=== PATIENT | male | born 1955 | race Hispanic/Latino ===

== ENCOUNTER 2017-06-16 16:03 | Emergency (ER) | payer BC ==
[2017-06-16 16:13] VITALS: RESP 16; TEMP 98.4; O2SAT 95
--- NOTE | 2017-06-16 16:22 | ED PDOC ---
Arrival/HPI - General Chief Complaint: Abdominal Pain Time Seen by Provider: 06/16/17 16:13 Historian: Patient - History of Present Illness Narrative History of Present Illness (Text): 06/16/17 16:22 61yo male with PMhx of Hypertension , lipdemia, present with complaint of mild sharp constant right groin/flank pain for hours now. +Nausea. Report history of Kidney stone 5years ago. Denies vomiting, diarrhea, fever, urinary symptoms, hematuria, chest pain, trauma, ripping/tearing upper back pain. Past Medical History - Provider Review Nursing Documentation Reviewed: Yes - Cardiac Hx Hypertension: Yes - Pulmonary Hx Respiratory Disorders: No - Neurological Hx Neurological Disorder: No - HEENT Hx HEENT Disorder: No - Renal Hx Renal Disorder: No - Endocrine/Metabolic Hx Endocrine Disorders: No - Hematological/Oncological Hx Blood Disorders: No - Integumentary Hx Dermatological Disorder: No - Musculoskeletal/Rheumatological Hx Musculoskeletal Disorders: No - Gastrointestinal Hx Gastrointestinal Disorders: No - Genitourinary/Gynecological Hx Genitourinary Disorders: No - Psychiatric Hx Psychophysiologic Disorder: No Hx Substance Use: No - Surgical History Other/Comment: VASECTOMY - Anesthesia Hx Anesthesia: Yes Family/Social History - Physician Review Nursing Documentation Reviewed: Yes Family/Social History: Unknown Family HX Smoking Status: Never Smoked Hx Alcohol Use: No Hx Substance Use: No Allergies/Home Meds Allergies/Adverse Reactions: Allergies No Known Allergies Allergy (Verified 06/16/17 16:07) Home Medications: Home Meds Medication Instructions Recorded Confirmed Atorvastatin [Lipitor] 10 mg PO DAILY 06/16/17 06/16/17 Losartan [Cozaar] 50 mg PO DAILY 06/16/17 06/16/17 Review of Systems - Physician Review All systems were reviewed & negative as marked: Yes - Review of Systems Constitutional: Normal Eyes: Normal ENT: Normal Respiratory: Normal Cardiovascular: Normal Gastrointestinal: Abdominal Pain, Nausea. absent: Constipation, Diarrhea, Vomiting, Hematochezia, Hematemesis Genitourinary Male: Normal Musculoskeletal: Normal Skin: Normal Neurological: Normal Endocrine: Normal Hemo/Lymphatic: Normal Psychiatric: Normal Physical Exam Vital Signs Reviewed: Yes Vital Signs Temp Pulse Resp BP Pulse Ox 06/16/17 16:08 98.4 F 69 16 150/100 H 95 Temperature: Afebrile Blood Pressure: Hypertensive Pulse: Regular Respiratory Rate: Normal Appearance: Positive for: Well-Appearing, Non-Toxic, Comfortable Pain Distress: None Mental Status: Positive for: Alert and Oriented X 3 - Systems Exam Head: Present: Atraumatic, Normocephalic Pupils: Present: PERRL Extroacular Muscles: Present: EOMI Conjunctiva: Present: Normal Mouth: Present: Moist Mucous Membranes Neck: Present: Normal Range of Motion Respiratory/Chest: Present: Clear to Auscultation, Good Air Exchange. No: Respiratory Distress, Accessory Muscle Use Cardiovascular: Present: Regular Rate and Rhythm, Normal S1, S2. No: Murmurs Abdomen: Present: Normal Bowel Sounds, Other (Soft). No: Tenderness, Distention , Peritoneal Signs, Rebound, Guarding, McBurney's Point Tender, Rovsing's Sign Present Back: Present: Normal Inspection. No: CVA Tenderness Upper Extremity: Present: Normal Inspection. No: Cyanosis, Edema Lower Extremity: Present: Normal Inspection. No: Edema Neurological: Present: GCS=15, CN II-XII Intact, Speech Normal Skin: Present: Warm, Dry, Normal Color. No: Rashes Psychiatric: Present: Alert, Oriented x 3, Normal Insight, Normal Concentration Medical Decision Making ED Course and Treatment: 06/16/17 16:26 61yo male present with complaint of right groin/flank pain with nausea x 2hrs. Pt report history of kidney stone. abdominal/Pelvic CT ordered to r/o Renal colic Vs Diverticulitis Vs Appendicitis VS MS pain PT declined pain medication in ED 06/16/17 17:17 PT was comfortable in Ed. He declined pain medication stating he is not in much pain. He was hemodynamically stable. CT result IMPRESSION: 5 mm mid right ureteral calculus with proximal hydroureteronephrosis. Additional punctate 2 mm nonobstructing right renal calculus. Diverticulosis without CT evidence of acute diverticulitis. Case was DW Dr. Livingston. He recommends that pt should be DC home , call his office tomorrow for Saturday appointment. Pt could not give urine in ED and Dr. Livingstno states is okay. Since pt is hemodynamically stable, he will be DC home with Flomax and percocet for pain as needed. Strongly advised to f/u with Dr. Livingston. Advised to drink plenty of fluid. TRT ED if pain worsens. - RAD Interpretation Radiology Orders: 06/16/17 16:21 ABD & PELVIS W/O PO OR IV CONT [CT] Stat Disposition/Present on Arrival - Present on Arrival Any Indicators Present on Arrival: No History of DVT/PE: No History of Uncontrolled Diabetes: No Urinary Catheter: No History of Decub. Ulcer: No History Surgical Site Infection Following: None - Disposition Have Diagnosis and Disposition been Completed?: Yes Diagnosis: Ureteral calculi Disposition: HOME/ ROUTINE Disposition Time: 17:25 Patient Plan: Discharge Condition: STABLE Discharge Instructions (ExitCare): Ureteral Stones (ED) Additional Instructions: Drink plenty of fluid Call Urologist, Dr. Livingston tomorrow Return to ED for any new or worsening symptoms Prescriptions: oxyCODONE/Acetaminophen [Percocet 5/325 mg Tab] 1 ea PO Q6 #6 tab Tamsulosin [Flomax] 0.4 mg PO DAILY #4 cap Referrals: Kirk Livingston MD [Staff Provider] - Follow up with primary Forms: [employer] (Serbian)
--- NOTE | 2017-06-16 17:02 | CT ---
PROCEDURE: CT Abdomen and Pelvis without Oral or IV contrast. HISTORY: Right groin/flank pain COMPARISON: None available. TECHNIQUE: Contiguous axial images of the abdomen and pelvis. No oral or IV contrast administered. Coronal and Sagittal reformats generated and reviewed. Radiation dose: Total exam DLP = 942.57 mGy-cm. This CT exam was performed using one or more of the following dose reduction techniques: Automated exposure control, adjustment of the mA and/or kV according to patient size, and/or use of iterative reconstruction technique. FINDINGS: There is limited evaluation of the solid organs without the administration of IV contrast. LOWER THORAX: No visible consolidation, pleural effusion, or pneumothorax. Small hiatal hernia/distal esophageal wall thickening. LIVER: Unremarkable unenhanced appearance. GALLBLADDER AND BILE DUCTS: Unremarkable unenhanced appearance. PANCREAS: Unremarkable unenhanced appearance. SPLEEN: 11 mm probable splenule. Otherwise unremarkable unenhanced appearance. ADRENALS: Unremarkable unenhanced appearance. KIDNEYS AND URETERS: 5 mm mid right ureteral calculus with proximal hydroureteronephrosis. Additional punctate 2 mm nonobstructing right renal calculus. No left-sided hydronephrosis or obstructing calculus identified. BLADDER: The urinary bladder appears unremarkable. REPRODUCTIVE: The prostate gland measures approximately 3.6 x 4.6 cm. APPENDIX: The appendix appears within normal limits of caliber. No secondary signs of acute appendicitis. BOWEL: The stomach is nondistended. Lack of oral contrast limits evaluation for bowel pathology. The bowel loops appear within normal limits of caliber without evidence of intestinal obstruction. Diverticulosis without CT evidence of acute diverticulitis. PERITONEUM: No significant free fluid. No definite free air. LYMPH NODES: No bulky lymphadenopathy identified. VASCULATURE: No aortic aneurysm. BONES: No acute osseous abnormality is detected. OTHER FINDINGS: Tiny fat containing umbilical hernia. IMPRESSION: 5 mm mid right ureteral calculus with proximal hydroureteronephrosis. Additional punctate 2 mm nonobstructing right renal calculus. Diverticulosis without CT evidence of acute diverticulitis.
[2017-06-16 18:58] VITALS: BP 139/89; PULSE 72
== END 2017-06-16 17:35 | disposition home or self-care (01) ==
LOC: ED 16:03
DX: N20.1 Calculus of ureter (principal); I10 Essential (primary) hypertension; E78.5 Hyperlipidemia, unspecified